=== PATIENT | male | born 1990 | race Caucasian/White ===

== ENCOUNTER 2022-02-14 16:44 | Emergency (ER) | payer OTHER, SELFPAY ==
[2022-02-14 17:04] VITALS: BP 151/98; PULSE 67; RESP 18; TEMP 36.2; O2SAT 100; BMI 28.1
[2022-02-14 17:07] VITALS: BP 150/109; PULSE 68; RESP 24; O2SAT 98
--- NOTE | 2022-02-14 17:21 | CTR_ITS ---
PROCEDURE INFORMATION: Exam: CT Abdomen And Pelvis With Contrast Exam date and time: 02/14/2022 5:47 PM Age: 32 years old Clinical indication: Abdominal pain; Patient HX: Epigastric pain today, ; additional info: Abd pain TECHNIQUE: Imaging protocol: Computed tomography of the abdomen and pelvis with contrast. Axial, coronal and sagittal reformatted images were created and reviewed. Radiation optimization: All CT scans at this facility use at least one of these dose optimization techniques: automated exposure control; mA and/or kV adjustment per patient size (includes targeted exams where dose is matched to clinical indication); or iterative reconstruction. Contrast material: OMNIPAQUE 350; Contrast volume: 95 ml; Contrast route: INTRAVENOUS (IV); COMPARISON: No relevant prior studies available. RADIATION DOSE METRICS: Total DLP (mGy-cm): 1918.49 FINDINGS: Diaphragm: Elevated left hemidiaphragm. Liver: Mild hepatomegaly. 8.6 x 7.9 cm heterogeneous mass in the left hepatic lobe. Innumerable low-density lesions throughout the hepatic parenchyma. Gallbladder and bile ducts: No radiodense gallstones. No biliary ductal dilatation. Pancreas: Unremarkable. Spleen: Mild splenomegaly. Adrenal glands: Normal. No mass. Kidneys and ureters: Subcentimeter low-density renal lesions bilaterally, measuring up to 6 mm on the right, too small to characterize. No radiodense calculi. No hydronephrosis. Stomach and bowel: No bowel wall thickening. No obstruction. No pneumatosis. Appendix: Normal. Intraperitoneal space: No free fluid. No organized fluid collection. No free air. Vasculature: Unremarkable. No aneurysm. Lymph nodes: No pathologically enlarged lymph nodes. Urinary bladder: Unremarkable as visualized. Reproductive: Unremarkable. Bones/joints: No acute osseous abnormality. Soft tissues: Unremarkable. CT/CT abdomen pelvis w con* [id number] IMPRESSION: 1. 8.6 x 7.9 cm heterogeneous mass in the left hepatic lobe with innumerable low-density lesions throughout the hepatic parenchyma. Findings are worrisome for malignancy/metastatic disease. 2. Additional findings, as above. COMMENTS: Consistent with the [employer]'s Incidental Findings Committee white paper (J Am Elissa Radiol 2018): Any incidental renal lesion less than 1 cm or classified as too small to characterize, or any incidental cystic renal lesion characterized as simple-appearing, is likely benign. No follow-up imaging is recommended for these lesions per consensus recommendations based on imaging criteria.
--- NOTE | 2022-02-14 17:22 | W.ED.ABDPA2 ---
HPI - Abdominal Pain General: Chief Complaint: Abdominal Pain Stated Complaint: abd pain Time Seen by Provider: 02/14/22 17:17 History of Present Illness: 32-year-old presents with epigastric abdominal pain. States this started suddenly around noon. Denies any nausea vomiting or constipation. Denies any previous history of similar pain. Denies any radiation to the sides or to the back. Denies any chest pain shortness of breath fevers or chills. Denies dysuria or urethral discharge. Review of Systems Narrative: - CONSTITUTIONAL: Denies weight loss, fever and chills. - HEENT: Denies changes in vision and hearing. - RESPIRATORY: Denies SOB and cough. - CV: Denies palpitations and CP. - GI: As above - : Denies dysuria and urinary frequency. - MSK: Denies myalgia and joint pain. - SKIN: Denies rash and pruritus. - NEUROLOGICAL: Denies headache, weakness, numbness and syncope. - PSYCHIATRIC: Denies suicidal ideation Physical Exam Narrative: EXAM NARRATIVE: - GENERAL: Alert and oriented x 3. No acute distress. Well-nourished. - EYES: EOMI. Anicteric. - HENT: Atraumatic, no C-spine tenderness. Moist mucous membranes. No scleral icterus. No cervical lymphadenopathy. - LUNGS: Clear to auscultation bilaterally. No accessory muscle use. Equal lung sounds bilaterally. No respiratory distress. - CARDIOVASCULAR: Regular rate and rhythm. No murmur. No JVD. - ABDOMEN: Soft, tender in epigastric region, non-distended. Negative CVA tenderness bilaterally, no rebound or guarding, negative Pham sign. No palpable masses. - EXTREMITIES: No edema. Non-tender. - SKIN: No rashes or lesions. Warm. - NEUROLOGIC: No meningismus or focal neurological deficits. CN II-XII grossly intact. - PSYCHIATRIC: Cooperative. Appropriate mood and affect. Course Vital Signs: Vital signs: Vital Signs Temperature 97.1 F L 02/14/22 17:04 Pulse Rate 75 02/14/22 18:10 Respiratory Rate 19 H 02/14/22 18:10 Blood Pressure 154/86 02/14/22 18:10 Pulse Oximetry 97 02/14/22 18:10 MDM - Abdominal Pain Medical Decision Making 32-year-old presents due to upper abdominal pain. Does have tenderness on exam. Improved with morphine. Lab work reveals mild LFT elevation. EKG and troponin do not reveal any sign of acute ischemia or acute abnormality. CT scan is concerning for liver mass. This is concerning for possible malignancy. Discussed with on-call oncologist, Dr. Palencia, at this time he recommends outpatient follow-up and will schedule patient for biopsy will call him tomorrow to arrange for outpatient follow-up. At this time I believe patient would be safe for discharge and outpatient follow-up. Return precautions provided. Plan was reviewed with the patient who expressed understanding. Questions answered. Patient will follow up with oncology and PCP. Patient discharged in stable condition. Lab Data : 02/14/22 17:40 02/14/22 17:40 Labs/Radiology: Radiology Impressions Abdomen/Pelvis CT 02/14/22 17:21 IMPRESSION: 1. 8.6 x 7.9 cm heterogeneous mass in the left hepatic lobe with innumerable low-density lesions throughout the hepatic parenchyma. Findings are worrisome for malignancy/metastatic disease. 2. Additional findings, as above. COMMENTS: Consistent with the [employer]'s Incidental Findings Committee white paper (J Am Elissa Radiol 2018): Any incidental renal lesion less than 1 cm or classified as too small to characterize, or any incidental cystic renal lesion characterized as simple-appearing, is likely benign. No follow-up imaging is recommended for these lesions per consensus recommendations based on imaging criteria. Laboratory Results WBC 6.0 10^3/uL (4.0-10.0) 02/14/22 17:40 RBC 5.11 10^6/uL (4.1-5.3) 02/14/22 17:40 Hgb 14.8 g/dL (11.7-16.6) 02/14/22 17:40 Hct 45.9 % (42.0-52.0) 02/14/22 17:40 MCV 89.8 fl (80-94) 02/14/22 17:40 MCH 29.0 pg (28.0-34.0) 02/14/22 17:40 MCHC 32.2 g/dL (30.0-36.0) 02/14/22 17:40 RDW 15.8 % (12.1-15.1) H 02/14/22 17:40 Plt Count 258 10^3/cmm (130-400) 02/14/22 17:40 MPV 9.8 fL (7.4-10.4) 02/14/22 17:40 Neut % (Auto) 76.1 % 02/14/22 17:40 Lymph % (Auto) 17.2 % 02/14/22 17:40 Butts % (Auto) 4.3 % 02/14/22 17:40 Eos % (Auto) 1.7 % 02/14/22 17:40 Baso % (Auto) 0.5 % 02/14/22 17:40 Neut # (Auto) 4.59 10^3/uL (1.8-7.7) 02/14/22 17:40 Lymph # (Auto) 1.0 10^3/uL (0.8-4.8) 02/14/22 17:40 Butts # (Auto) 0.3 10^3/uL (0.2-0.9) 02/14/22 17:40 Eos # (Auto) 0.1 10^3/uL (0.0-0.8) 02/14/22 17:40 Baso # (Auto) 0.0 10^3/uL (0.0-0.1) 02/14/22 17:40 Nucleated RBC % (auto) 0 % 02/14/22 17:40 Nucleated RBCs # 0.0 /100WBC 02/14/22 17:40 Sodium 138 mmol/L (136-145) 02/14/22 17:40 Potassium 4.3 mmol/L (3.5-5.1) 02/14/22 17:40 Chloride 98 mmol/L (98-107) 02/14/22 17:40 Carbon Dioxide 26 mmol/L (22-29) 02/14/22 17:40 Anion Gap 18.3 (5-19) 02/14/22 17:40 BUN 16 mg/dL (6-20) 02/14/22 17:40 Creatinine 0.7 mg/dL (0.7-1.2) 02/14/22 17:40 GFR Calculation 130.7 mL/min (90-130) H 02/14/22 17:40 Glucose 106 mg/dL (65-115) 02/14/22 17:40 Calculated Osmolality 288 mOsm/kg (285-295) 02/14/22 17:40 Calcium 10.0 mg/dL (8.5-10.5) 02/14/22 17:40 Total Bilirubin 0.9 mg/dL (0.15-1.2) 02/14/22 17:40 AST 94 U/L (0-40) H 02/14/22 17:40 ALT 151 U/L (0-41) H 02/14/22 17:40 Alkaline Phosphatase 42 IU/L (40-130) 02/14/22 17:40 Troponin T Baseline 12 ng/L (0-15) 02/14/22 17:40 Troponin T 120 Minute 18.12 ng/L (0-15) H 02/14/22 19:09 Delta Troponin T 6.12 ABS# (0-10) 02/14/22 19:09 Total Protein 7.3 g/dL (6.6-8.7) 02/14/22 17:40 Albumin 5.1 g/dL (3.5-5.2) 02/14/22 17:40 Globulin 2.2 g/dL (1.3-4.6) 02/14/22 17:40 Lipase 67 U/L (13-60) H 02/14/22 17:40 Urine Color Yellow (Yellow) 02/14/22 19:16 Urine Appearance Clear (CLEAR) 02/14/22 19:16 Urine pH 5 (5-7) 02/14/22 19:16 Ur Specific [place] 1.010 (1.005-1.030) 02/14/22 19:16 Urine Protein 1+ (Negative) H 02/14/22 19:16 Urine Glucose (UA) Norm (Normal) 02/14/22 19:16 Urine Ketones Negative (Negative) 02/14/22 19:16 Urine Blood 3+ (Negative) H 02/14/22 19:16 Urine Nitrate Negative (Negative) 02/14/22 19:16 Urine Bilirubin Neg (Negative) 02/14/22 19:16 Urine Urobilinogen Neg mg/dL (Negative) 02/14/22 19:16 Ur Leukocyte Esterase Trace (Negative) H 02/14/22 19:16 Urine RBC 15-25 /hpf (0-2) H 02/14/22 19:16 Urine WBC 0-4 /hpf (0-5) H 02/14/22 19:16 Ur Squamous Epith Cells 0-4 /hpf (0-5) H 02/14/22 19:16 Amorphous Sediment Not Reportable 02/14/22 19:16 Urine Bacteria Trace /hpf (NONE) 02/14/22 19:16 Urine Mucus Trace /hpf 02/14/22 19:16 EKG Data EKG 1: Other EKG comments: Sinus rhythm, rate of 67, T wave inversion in aVF, no sign of acute ischemia or other acute abnormality. Discharge Plan Discharge Patient Disposition: Home Clinical Impression: Liver mass Condition: Stable Prescriptions: New hydrocodone-acetaminophen 5-325 mg tablet 1 tab PO Q8H PRN (Reason: pain) 3 Days Qty: 9 0RF ondansetron 4 mg tablet,disintegrating 4 mg PO TID PRN (Reason: nausea and vomiting) 3 Days Qty: 10 0RF Discharge Orders: Discharge ED (Routine); Ordered 02/14/22 Ordered By: Alexis Hernandez Referrals: Garrett Palencia MD [Hospitalist] - 1-3 days Patient Instructions: Liver Cancer (DC), Abdominal Pain (ED), Opioid Safety Coding Level of Care Code ED Long Term Care Administrator for Chg Darnell
[2022-02-14 17:49] LABS: Basophils % 0.5 %; Eosinophils # 0.1 10^3/uL (0.0-0.8); Eosinophils % 1.7 %; Hematocrit 45.9 % (42.0-52.0); Hemoglobin 14.8 g/dL (11.7-16.6); Lymphocytes % 17.2 %; Mean Corpuscular HGB Conc 32.2 g/dL (30.0-36.0); Mean Corpuscular Volume 89.8 fl (80-94); Mean Platelet Volume 9.8 fL (7.4-10.4); Monocytes # 0.3 10^3/uL (0.2-0.9); Monocytes % 4.3 %; Neutrophils # 4.59 10^3/uL (1.8-7.7); Neutrophils % 76.1 %; Nucleated Red Blood Cells % 0 %; Platelet Count 258 10^3/cmm (130-400); Red Blood Count 5.11 10^6/uL (4.1-5.3); Red Cell Distribution Width 15.8 % (12.1-15.1)
[2022-02-14 17:51] VITALS: RESP 18
[2022-02-14] MEDS: ondansetron 2 mg/ML SDV 2 mL 4 MG IVP (17:51)
[2022-02-14] MEDS: morphine 4 mg/mL SDV 1 mL IVP (17:51)
[2022-02-14] MEDS: sodium chloride 0.9% 1,000 ML 999 ML IV (17:52)
[2022-02-14] MEDS: iohexol 350 mg/mL 100 mL Btl IV (18:00)
[2022-02-14 18:10] VITALS: BP 154/86; PULSE 75; RESP 19; O2SAT 97
[2022-02-14 18:13] LABS: Alanine Aminotransferase 151 U/L (0-41); Albumin Level 5.1 g/dL (3.5-5.2); Alkaline Phosphatase 42 IU/L (40-130); Blood Urea Nitrogen 16 mg/dL (6-20); Carbon Dioxide 26 mmol/L (22-29); Chloride 98 mmol/L (98-107); Globulin 2.2 g/dL (1.3-4.6); Glomerular Filtration Rate 130.7 mL/min (90-130); Glucose 106 mg/dL (65-115); Lipase 67 U/L (13-60); Osmolality Calculated 288 mOsm/kg (285-295); Sodium 138 mmol/L (136-145); Total Bilirubin 0.9 mg/dL (0.15-1.2); Total Protein 7.3 g/dL (6.6-8.7)
[2022-02-14 18:15] LABS: Troponin(5th) Baseline 12 ng/L (0-15)
[2022-02-14 18:33] LABS: Anion Gap 18.3 (5-19); Aspartate Amino Transferase 94 U/L (0-40); Potassium 4.3 mmol/L (3.5-5.1)
[2022-02-14 19:30] LABS: Bilirubin Urine Neg (Negative); Blood Urine 3+ (Negative); Glucose Urine UA Norm (Normal); Ketones Urine Negative (Negative); Leukocyte Esterase Urine Trace (Negative); Nitrate Urine Negative (Negative); Protein Urine 1+ (Negative); Urine Appearance Clear (CLEAR); Urine Color Yellow (Yellow); Urobilinogen Urine Neg (Negative); pH Urine 5 (5-7)
[2022-02-14 19:31] LABS: RBC Urine 15-25 /hpf (0-2); Squamous Epithelial Cell Urine 0-4 /hpf (0-5); WBC Urine 0-4 /hpf (0-5)
[2022-02-14 19:32] LABS: Add Urine Culture? Yes; Bacteria Urine TRACE /hpf; Mucus Urine TRACE /hpf
[2022-02-14 19:38] LABS: Troponin 5 2HR 18.12 ng/L (0-15)
[2022-02-14 19:39] LABS: Troponin 5 2HR Delta 6.12 ABS# (0-10)
[2022-02-14 19:54] VITALS: BP 169/99; PULSE 70; RESP 16; O2SAT 99
[2022-02-14] MEDS: HYDROcodone-acetaminophen 10-325 mg Tablet 1 TAB PO (19:57)
--- NOTE | 2022-02-14 19:58 | PC.NURSE ---
gave patient [place] 325/5 to take home for pain until able to fill prescription tomorrow
[2022-02-14 20:21] LABS: Tumor Marker Alpha Fetoprotein 3.1 ng/mL (0-8.3)
--- NOTE | 2022-02-14 23:22 | ECG_ITS ---
[facility] Test Date: 2022-02-14 Pat Name: Slade Noland Department: Room: Gender: Male Imaging Manager: : 1990 Requested By: Alexis Hernandez Order Number: [id number] Louis MD: Tray Hutton M.D. Measurements Intervals [place] Rate: 67 P: 36 DE: 142 QRS: 90 QRSD: 99 T: -18 QT: 357 QTc: 379 Interpretive Statements SINUS RHYTHM NONSPECIFIC T-WAVE ABNORMALITY No previous ECG available for comparison Electronically Signed On 02-14-2022 21:02:42 CDT by Tray Hutton M.D. [email or web address]
--- NOTE | 2022-02-15 08:16 | DCPLANNER ---
Addendum entered by Gina Quinones 02/18/22 09:31: farrowing manager was told that patient was transferred out the [facility], the clinic will keep referral and will schedule an appointment when patient returns home. Original Note: farrowing manager had message to schedule a follow up appointment with Dr. Palencia, oncology. farrowing manager spoke with Jo Wang, manufacturing coordinator with oncology. Gave clinic patients information, which will be printed and reviewed. Clinic will contact patient with appointment information.
== END 2022-02-14 19:59 | disposition home or self-care (01) ==
PROVIDERS: Emergency Provider Emergency Medicine
DX: R16.0 Hepatomegaly, not elsewhere classified (principal)
CPT/HCPCS: 36415; 74177; 80053; 81001; 82105; 83690; 84484; 85025; 87086; 93005; 96374; 96375; 99285; J2270; J2405; J7030; Q9967

== ENCOUNTER 2022-02-14 22:52 | Observation (INO) | payer OTHER, SELFPAY ==
[2022-02-14 23:22] VITALS: BP 151/90; PULSE 66; RESP 20; TEMP 36.8; O2SAT 98; BMI 28.1
--- NOTE | 2022-02-14 23:48 | W.ED.ABDPA2 ---
HPI - Abdominal Pain General: Chief Complaint: Abdominal Pain Stated Complaint: abd pain Time Seen by Provider: 02/14/22 23:04 Source: patient Mode of arrival: ambulatory Limitations: no limitations History of Present Illness: Patient is a 32-year-old male who presents to the ED today with complaint of upper abdominal pain. Patient was seen here earlier today and had labs and CT imaging performed. CT imaging showed multiple liver lesions concerning for possible malignancy. Patient was given IV pain medications on his last visit which did help but he states these medications were off. He was given a hydrocodone to go home with but states when he took it at home he got nauseous and vomited it up. Previous ED provider had consulted with Dr. Palencia our oncologist who agreed to see patient this week for further evaluation. Patient denies NSAID use/etoh use. No history of GI ulcer/bleed. MD elicited complaint: abdominal pain Pertinent past history: none Onset (ago): hour(s) Pain Consistency: constant Location: Epigastric, LUQ and RUQ Severity: severe Quality: sharp Radiation: none Migration to: no migration Associated Symptoms: Denies chills, constipation, diarrhea, dysuria, fever(s), hematochezia, hematuria and melena Review of Systems Const: Denies: fever(s), chills, body aches, fatigue or malaise Card: Denies: chest pain Resp: Denies: dyspnea GI: Reports: abdominal pain; Denies: diarrhea, constipation, hematochezia or melena : Denies: flank pain, dysuria or hematuria Musc: Denies: neck pain, back pain, extremity pain or joint pain Skin/Breast: Denies: rash Neuro: Denies: headache(s), numbness in extremities, weakness in extremities or sensory changes [facility] ED PFSH: Medical History Cellulitis Surgical History No significant past surgical history Family History Other No significant family history Social History Smoking and tobacco status: never smoked Alcohol intake: current Alcohol intake frequency: holidays/special occasions only Substance/Drug Use: never Lives independently: Yes Marital status: Physical Exam Const: COMMON NORMALS: patient oriented x3, no limitations and alert GENERAL APPEARANCE: cooperative and in distress (appears uncomfortable) Eye: SCLERA: sclerae normal Resp: COMMON NORMALS: normal respiratory effort and clear to auscultation bilaterally AUSCULTATION: clear to auscultation bilaterally Cardio: COMMON NORMALS: regular rate and regular rhythm RATE: regular rate RHYTHM: regular rhythm GI: COMMON NORMALS: Normal to inspection, nondistended, normoactive bowel sounds present, Soft to palpation, No hepatosplenomegaly present and no masses INSPECTION: Yes normal to inspection AUSCULTATION: Yes normoactive bowel sounds PALPATION: Yes Soft to palpation, Yes Tenderness to palpation present (GI) (throughout upper abdomen) and Yes No hepatosplenomegaly present : COMMON NORMALS: Yes no CVA tenderness BLADDER/KIDNEY EXAM: Yes no CVA tenderness Back/Pelvis: COMMON NORMALS: no CVA tenderness Extremity: GENERAL: Yes normal exam except as noted Neuro: UZMA COMA SCALE: document GCS findings [place] coma scale eye opening: Spontaneous Uzma coma scale verbal response: Orientated [place] coma scale motor response: Obey commands Uzma coma scale total score: 15 COMMON NORMALS: patient oriented x3, moves all extremities, no focal motor deficits and no sensory deficits noted SENSORIUM/ORIENTATION: Yes alert Skin: COMMON NORMALS: no rashes or lesions noted and no jaundice GENERAL SKIN EXAM: no rashes or lesions noted TRAUMA: no lacerations or abrasions Course Reevaluation(s): Reevaluation #1: states pain/nausea is still present; reports he tried to take a drink of water and felt like he was going to vomit Time: 00:32 Consultations: Consultation #1: Dr. Rivas?will admit to obs for pain control Vital Signs: Vital signs: Vital Signs Temperature 98.6 F 02/15/22 07:58 Pulse Rate 97 02/15/22 07:58 Respiratory Rate 18 02/15/22 08:28 Blood Pressure 149/75 02/15/22 07:58 Pulse Oximetry 95 02/15/22 07:58 MDM - Abdominal Pain Medical Decision Making Patient here with complaints of upper abdominal pains beginning yesterday/today. Patient had lab work and CT imaging performed on earlier visit. CT scan worrisome for liver malignancy/metastasis. Patient states when he was discharged earlier pain was controlled but as soon as the morphine wore off his pain returned. He tried taking a hydrocodone that he was discharged with but vomited it back up. He presented back to the ED with complaints of pain. He was initially treated with Morphine and Zofran which did not seem to do much for his pain or nausea. He was then given Dilaudid and Reglan and states this has helped but is still having discomfort and does not feel like his pain/nausea can be controlled at home. I spoke to Dr. Merino and Dr. Rivas and we will admit patient to obs for pain control. We did discuss gastric etiology of his symptoms and will go ahead and start him on a PPI. Lab Data : 02/15/22 07:03 02/15/22 07:03 Discharge Plan Discharge Patient Disposition: Placed in Observation Admit Provider: Jeremy Rivas Clinical Impression: Liver mass, Uncontrolled pain Coding Level of Care Code ED Double Cut Off Saw Operator for Chg Fwd Exam Comprehensive
[2022-02-15] VITALS (17 sets, daily range): BP systolic 127–173; BP diastolic 71–106; PULSE 68–134; RESP 12–22; TEMP 36.7–38.1; O2SAT 91–98
[2022-02-15] MEDS: morphine 4 mg/mL SDV 1 mL IVP (00:13)
[2022-02-15] MEDS: ondansetron 2 mg/ML SDV 2 mL 4 MG IVP ×4 (00:14→19:19)
[2022-02-15] MEDS: metoclopramide 5 mg/mL SDV 2 mL 10 MG IVP (00:40)
[2022-02-15] MEDS: HYDROmorphone 1 mg/mL INJ 1 mL 0.5 MG IVP ×2 (00:43→02:33)
[2022-02-15] MEDS: pantoprazole 40 mg SDV IVP (01:34)
--- NOTE | 2022-02-15 01:38 | PM.HP ---
Providers/Chief Complaint Chief Complaint: abd pain History of Present Illness Pleasant 32-year-old gentleman is accompanied by his in ER after he returned here having initially presented earlier last night due to right upper quadrant radiating to epigastric pain, which on imaging identified 8.6 x 7.9 cm heterogenous mass in the left hepatic lobe with innumerable low-density lesions throughout the hepatic parenchyma on contrast CT abdomen and pelvis. Findings worrisome for malignancy/metastatic disease. In the kidneys and ureters also noted subcentimeter low-density renal lesions bilaterally, measuring up to 6 mm on the right too small to characterize. No radiodense calculi. No hydronephrosis. He was given IV pain medications on the initial visit which helped with his pain. He discharged home with plans for a work-up of the above findings with follow-up with Dr. Palencia, however, return to ER stating that after returning home pain medications had worn off. He was given hydrocodone to go home, but after taking it at home became nauseated, vomited. Could not tolerate oral medications for pain or nausea due to this return to ER. Observation was requested as he is feeling a little bit better currently, but still nauseated and concerned that returning home too soon will lead to repeat of earlier events. He took no NSAIDs. He rarely drinks any alcohol. He has had no headache or focal neurologic abnormalities. He has felt somewhat warm and having some sweats. Detailed work-up from earlier visit showed no fever, no leukocytosis. Lipase with minimal elevation of 67. Mild transaminitis with normal T bili and alk phos. Microscopic hematuria. Review of Systems Const: Denies: fever(s), chills, body aches or malaise Eyes: Denies: change in vision, eye discomfort or eye redness ENMT: Denies: throat pain, oral sores or ear or mastoid pain Card: Denies: chest pain, edema, pre-syncope or dyspnea on exertion Resp: Denies: dyspnea, productive cough, change in phlegm color or hemoptysis GI: Reports: abdominal pain, nausea and vomiting (After pain medication); Denies: diarrhea, constipation, hematochezia or melena : Denies: flank pain, difficulty urinating, urinary frequency or hematuria Musc: Denies: back pain, joint swelling or joint redness Skin/Breast: Denies: rash or new lesions Neuro: Denies: headache(s), numbness in extremities, weakness in extremities, dizziness, confusion or seizure-like activity Endo: Denies: polyuria or polydipsia Alfonzo/Lymph: Denies: easy bleeding or tender lymph nodes All/Imm: Denies: urticaria or tongue swelling Medications/Allergies Home Medications Medication Instructions Recorded Confirmed Last Taken Type hydrocodone 5 mg-acetaminophen 325 1 tab PO Q8H PRN 3 Days #9 tab 02/14/22 Unknown Rx mg tablet ondansetron 4 mg disintegrating 4 mg PO TID PRN 3 Days #10 tab 02/14/22 Unknown Rx tablet Allergies Allergy/AdvReac Type Severity Reaction Status Date / Time vancomycin Allergy ALGY-Redness Verified 02/15/22 01:56 of Skin PFSH Acute PFSH: Medical History Cellulitis Surgical History No significant past surgical history Family History Other No significant family history Social History Smoking and tobacco status: never smoked Alcohol intake: current Alcohol intake frequency: holidays/special occasions only Substance/Drug Use: never Lives independently: Yes Marital status: Vitals/I&O/Wt Last Vital Signs Temp 98.2 F 02/14/22 23:22 Pulse 80 02/15/22 01:25 Resp 18 02/15/22 00:44 BP 127/71 02/15/22 01:25 Pulse Ox 94 02/15/22 01:25 Weight last 48 hrs Weight 83.915 kg Physical Exam Narrative: Accompanied by at bedside. Const: COMMON NORMALS: alert GENERAL APPEARANCE: cooperative ORIENTATION/CONSCIOUSNESS: Yes awake OTHER: Holding onto her right upper quadrant. HENMT: COMMON NORMALS: normocephalic, EAC's normal, Normal external nose present and moist oral mucous membranes HEAD & SCALP: normocephalic NOSE: Normal external nose present EXTERNAL AUDITORY CANAL: EAC's normal Neck/C-Spine: COMMON NORMALS: no meningeal signs Chest: CHEST: Yes Symmetrical chest wall rise Resp: COMMON NORMALS: clear to auscultation bilaterally AUSCULTATION: clear to auscultation bilaterally Cardio: COMMON NORMALS: regular rate, regular rhythm and No murmurs present (Cardio) RATE: regular rate RHYTHM: regular rhythm GI: COMMON NORMALS: Normal to inspection, nondistended, normoactive bowel sounds present, Soft to palpation and non-tender PALPATION: Yes Soft to palpation and Yes Tenderness to palpation present (GI) Details: RUQ Extremity: COMMON NORMALS: no pedal edema Neuro: COMMON NORMALS: moves all extremities SENSORIUM/ORIENTATION: Yes alert MENINGEAL SIGNS: Yes no meningeal signs Psych: COMMON NORMALS: mental status grossly normal Skin: COMMON NORMALS: no wounds RASHES: no rashes A&P Assessment and plan (1) Nausea and vomiting: Nausea and vomiting after taking hydrocodone at home. Subsequently nauseated to the point could not tolerate further pain or nausea medications by mouth. Return to ER after initial visit. On return received additionally Zofran, Reglan for nausea, Dilaudid for pain. A dose of Protonix. Currently is feeling little bit better, but still nauseated, and still with right upper quadrant pain, concerned that returning home too soon will lead to repeat of earlier events. Continue to optimize nausea control, continue Zofran as needed. Reglan can be added again if needed. Discontinue hydrocodone, consider hydromorphone p.o. for now if tolerating. Continue PPI for now. Will also follow-up lipase with noted minimal elevation on prior admission. Status: Acute (2) Uncontrolled pain: Right upper quadrant radiating to epigastrium. Pain control as above. As above. Status: Acute (3) Liver mass: New diagnosis of heterogenous liver mass with innumerable small lesions throughout liver parenchyma. On initial ER visit was set up with follow-up with additional work-up with Dr. Palencia which he and his are aware of the need to pursue. Status: Acute (4) Lesion of both [employer] kidneys: Brought up with him also noted too small to characterize kidney lesions of unclear significance. With microscopic hematuria noted, concern may arise for metastatic disease. Status: Acute (5) Microscopic hematuria: Will need follow-up regarding microscopic hematuria. Possibly related to kidney lesions as above. Status: Acute Plan Mild transaminitis: Likely related to liver mass and lesions, although will also assess acute hepatitis panel. Attestations Medical Necessity Statement*: Place in observation for optimization of control of severe nausea, inability to tolerate oral medication and optimization of control of pain. Coding Level of Care Code Acute Forming Acid Dumper for Alyssa Patrick Diagnoses Nausea and vomiting R11.2 Uncontrolled pain R52 Liver mass R16.0 Microscopic hematuria R31.29 Lesion of both [employer] kidneys N28.9
[2022-02-15] MEDS: HYDROmorphone 1 mg/mL INJ 1 mL IVP ×3 (04:28→19:30)
[2022-02-15] MEDS: metoclopramide 5 mg/mL SDV 2 mL IVP ×2 (04:29→12:45)
[2022-02-15 07:17] LABS: Basophils # 0.1 10^3/uL (0.0-0.1); Basophils % 0.4 %; Eosinophils % 0.2 %; Hematocrit 45.4 % (42.0-52.0); Hemoglobin 14.7 g/dL (11.7-16.6); Lymphocytes # 0.5 10^3/uL (0.8-4.8); Lymphocytes % 4.2 %; Mean Corpuscular HGB Conc 32.4 g/dL (30.0-36.0); Mean Corpuscular Hemoglobin 28.5 pg (28.0-34.0); Mean Corpuscular Volume 88.2 fl (80-94); Mean Platelet Volume 8.7 fL (7.4-10.4); Monocytes # 0.4 10^3/uL (0.2-0.9); Monocytes % 3.9 %; Neutrophils # 10.21 10^3/uL (1.8-7.7); Neutrophils % 91.1 %; Nucleated Red Blood Cells % 0 %; Platelet Count 282 10^3/cmm (130-400); Red Blood Count 5.15 10^6/uL (4.1-5.3); Red Cell Distribution Width 15.3 % (12.1-15.1); White Blood Count 11.2 10^3/uL (4.0-10.0)
[2022-02-15 07:40] LABS: Lipase 48 U/L (13-60)
[2022-02-15 07:53] LABS: Hepatitis A Antibody IgM Non-Reactive (Nonreactive); Hepatitis B Core IgM Non-Reactive (Nonreactive); Hepatitis B Surface Antigen Non-Reactive (Nonreactive); Hepatitis C Virus Antibody Non-Reactive (Nonreactive)
[2022-02-15 07:59] LABS: Albumin Level 4.9 g/dL (3.5-5.2); Alkaline Phosphatase 50 IU/L (40-130); Anion Gap 17.6 (5-19); Aspartate Amino Transferase 590 U/L (0-40); Blood Urea Nitrogen 15 mg/dL (6-20); Calcium 9.9 mg/dL (8.5-10.5); Carbon Dioxide 27 mmol/L (22-29); Chloride 97 mmol/L (98-107); Globulin 2.5 g/dL (1.3-4.6); Glucose 115 mg/dL (65-115); Osmolality Calculated 286 mOsm/kg (285-295); Potassium 4.6 mmol/L (3.5-5.1); Sodium 137 mmol/L (136-145); Total Bilirubin 1.2 mg/dL (0.15-1.2); Total Protein 7.4 g/dL (6.6-8.7)
[2022-02-15 08:10] LABS: Alanine Aminotransferase 1186 U/L (0-41)
--- NOTE | 2022-02-15 09:50 | PC.CHAP ---
Pastoral Care Encounter/Spiritual Assessment Type of Contact [] Declined draw frame tender visit [] Patient/Family/Request visit [] Outpatient visit [] Follow-up visit [] Physician referral [] Code/Alert []x Routine visit [] Staff referral [] Actively dying [] Patient sleeping [] Family support [] [] Out of room [] Palliative care [] [x] Receiving care in room [] Pre-surgical visit [] Trauma [] Long length of stay [] ICU visit [] Other: Relational/Emotional Strength [] Patient feels connected with others/family/visitors/staff [] Distress [] Loneliness/isolation [] Abandonment Spirituality of Patient [] Person of Milagro [] Attends Nondenominational of their Milagro [] Believes in Prayer [] Reads Bible or Voodoo materials [] There are Spiritual issues to be addressed Shear Helper Interventions [] Prayer [] Active listening [] Non-anxious presence [] Spiritual/emotional support [] Crisis/trauma care [] Spiritual counseling [] Bereavement support [] Provided bereavement packet [] Provided Bible/devotional materials [] Provided toy/stuffed animal, coloring book to patient or family member [] Provided Communion [] Anointing/Shonto [] Salvation [] Completed spiritual assessment [] Other: Impact on Illness or Injury [] Angry [] Fearful [] Anxious [] Often cries [] Exhaustion [] Unable to work [] Unable to attend adventist [] Unable to walk/stand [] Unable to read [] Unable to drive [] Unable to eat/drink [] Unable to sleep [] Unable to be with family [] Patient intubated [] Other: Summary Time spent with patient
[2022-02-15] MEDS: promethazine 25 mg/mL SDV 1 mL 12.5 MG IM (09:56)
[2022-02-15] MEDS: morphine 4 mg/mL SDV 1 mL 2 MG IVP (10:00)
[2022-02-15] MEDS: sodium chloride 0.9% 1,000 ML 75 ML IV (10:01)
--- NOTE | 2022-02-15 11:14 | PC.NURSE ---
Pt vomiting, vomit is yellow. Pt is having dry heaves with nausea.
--- NOTE | 2022-02-15 12:11 | PM.TDS ---
Transfer Summary Providers Date of Admission: 02/15/22 01:14 Date of Discharge/Transfer: 02/15/22 Attending Provider at Admission: Jeremy Rivas Attending Provider at Transfer: Evi Moran MD Transfer Plans: Anticipated date of transfer: 02/15/22. Diagnoses at Discharge Discharge Diagnosis (1) Nausea and vomiting: Status: Acute (2) Uncontrolled pain: Status: Acute (3) Liver mass: Status: Acute (4) Lesion of both [place] kidneys: Status: Acute (5) Microscopic hematuria: Status: Acute Reason for Visit Reason for Visit abd pain Hospital Course Hospital Course 32-year-old young male who was admitted to the hospital for management evaluation of recurrent nausea vomiting right upper quadrant pain. No previous history of medical or surgical conditions. He does not take anything except testosterone. Patient is stating that he has been prescribed testosterone by a physician at [place]. He gets testosterone prescription and never bought online. He has been using it for last 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 Hemoglobin has remained stable 14.7 blood pressure is stable he is on room air. We do not have interventional radiologist for embolization for his active bleed. His H&H is every 4-6 hours. Next H&H is pending. For interventional radiology/embolization of hepatic vessels he will be transferred for higher level of care. He also have multiple cysts on his liver, Hepatitis panel negative CBC 11.2 hemoglobin 14 platelet count 282, creatinine 0.8 AST 590, ALT 1186, he has been afebrile, alpha-fetoprotein 3.1 lipase 48 Patient was presented to 20 different hospitals, Dr. Pimentel at [facility] has accepted him today he is an interventional radiologist. Patient is going to trauma ICU for the intervention tonight. He will be transferred via air evac. I was able to show the images via [employer] to Dr. Calvillo. COMPARISON: CT abdomen pelvis w con* [id number] 02/14/2022 5:47 PM RADIATION DOSE METRICS: Total DLP (mGy-cm): 3381.81 FINDINGS: Lungs: Mild elevation of the right hemidiaphragm. Compressive atelectasis in the right middle and right lower lobes. Pleural space: No pleural effusion. Heart: Stable mild enlargement of the visualized portions of the heart. Aorta: No evidence for aortic aneurysm or aortic dissection. Celiac trunk and mesenteric arteries: There is redemonstration of extravasation of contrast within the lesion on the arterial, portal venous, and delayed images consistent with active bleeding (series 7, images 74, 314, and 559). This suggests active bleeding from a branch of the right hepatic artery, it is uncertain whether there is also active bleeding from other vessels. The celiac artery, common hepatic artery and left hepatic artery, splenic artery, superior mesenteric artery, and inferior mesenteric artery are unremarkable. No occlusion, thrombosis, stenosis, dissection, or aneurysm. 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 Renal arteries are otherwise unremarkable. No occlusion, thrombosis, stenosis, extravasation, dissection, or aneurysm. Right iliac arteries: The right common iliac artery, right external iliac artery, and right internal iliac artery are unremarkable. No occlusion, thrombosis, stenosis, extravasation, dissection, or aneurysm. Left iliac arteries: The left common iliac artery, left external iliac artery, and left internal iliac artery are unremarkable. No occlusion, thrombosis, stenosis, extravasation, dissection, or aneurysm. Liver: There is heterogenous enhancement diffusely throughout the liver, this is likely due to multiple small lesions noted on the prior study, the small lesions are not as well visualized on the current study which may be secondary to enhancement. The large focus in the the right lobe of the liver is obscured by an area of hemorrhage. See under celiac trunk and mesenteric arteries for findings regarding contrast extravasation in this focus. Gallbladder and bile ducts: The gallbladder is unremarkable. No biliary ductal dilatation. Pancreas: The pancreas is unremarkable. No pancreatic ductal dilatation. Spleen: The spleen is unremarkable. Adrenal glands: The right and left adrenal glands are unremarkable. Kidneys and ureters: Subcentimeter hypodense foci in both right and left kidneys that are too small to characterize, however likely represent small cysts. The right and left ureters are unremarkable. Stomach and bowel: Unremarkable. No active gastrointestinal bleeding. No obstruction. No mucosal thickening. Appendix: No evidence of appendicitis. Intraperitoneal space: No free intraperitoneal air. No loculated fluid collections to suggest an abscess. Interval development of a moderate amount of hyperdense free fluid consistent with hemorrhage in the abdomen and pelvis. Lymph nodes: No lymphadenopathy. Urinary bladder: The bladder is unremarkable. Reproductive: Unremarkable as visualized. Bones/joints: No acute fracture. No dislocation. Soft tissues: No acute abnormality in the extra-abdominal soft tissues. CT/CT angio abdomen pelvis [id number] IMPRESSION: 1. Redemonstration of extravasation of contrast compared with the previous study within the inferior right lobe of the liver on the arterial, portal venous, and delayed images. This suggests active bleeding from a branch of the right hepatic artery, it is uncertain whether there is also active bleeding from other vessels. The area of hemorrhage has increased in size and is obscuring the large focus in the right hepatic lobe. Interval development of a moderate amount of hyperdense free fluid consistent with hemorrhage in the abdomen and pelvis. 2. There is heterogenous enhancement diffusely throughout the liver, this is likely due to multiple small foci noted on the prior study, the small foci are not as well visualized on the current study which may be due to enhancement. 3. 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 Liver: Mild hepatomegaly. 8.6 x 7.9 cm heterogeneous mass in the left hepatic lobe. Innumerable low-density lesions throughout the hepatic parenchyma. Gallbladder and bile ducts: No radiodense gallstones. No biliary ductal dilatation. Pancreas: Unremarkable. Spleen: Mild splenomegaly. Adrenal glands: Normal. No mass. Kidneys and ureters: Subcentimeter low-density renal lesions bilaterally, measuring up to 6 mm on the right, too small to characterize. No radiodense calculi. No hydronephrosis. Stomach and bowel: No bowel wall thickening. No obstruction. No pneumatosis. Appendix: Normal. Intraperitoneal space: No free fluid. No organized fluid collection. No free air. Vasculature: Unremarkable. No aneurysm. Lymph nodes: No pathologically enlarged lymph nodes. Urinary bladder: Unremarkable as visualized. Reproductive: Unremarkable. Bones/joints: No acute osseous abnormality. Soft tissues: Unremarkable. CT/CT abdomen pelvis w con* [id number] IMPRESSION: 1. 8.6 x 7.9 cm heterogeneous mass in the left hepatic lobe with innumerable low-density lesions throughout the hepatic parenchyma. Findings are worrisome for malignancy/metastatic disease. 2. Additional findings, as above. Physical Exam Narrative: Young male, currently cocooned in bed secondary to right upper quadrant pain Tender hepatomegaly Abdomen soft S1, S2 Nonfocal neuro exam Family at the bedside Saturating well on room air TS Data Studies Completed and Pending Pending at discharge Category Date Time Status Hemoglobin and Hematocrit Stat Lab 02/15/22 11:10 Ordered Labs from last 24 hours 02/15/22 02/15/22 02/15/22 07:03 07:03 07:03 WBC 11.2 H RBC 5.15 Hgb 14.7 Hct 45.4 MCV 88.2 MCH 28.5 MCHC 32.4 RDW 15.3 H Plt Count 282 MPV 8.7 Neut % (Auto) 91.1 Lymph % (Auto) 4.2 [place] % (Auto) 3.9 Eos % (Auto) 0.2 Baso % (Auto) 0.4 Neut # (Auto) 10.21 H Lymph # (Auto) 0.5 L [place] # (Auto) 0.4 Eos # (Auto) 0.0 Baso # (Auto) 0.1 Nucleated RBC % (auto) 0 Nucleated RBCs # 0.0 Sodium 137 Potassium 4.6 Chloride 97 L Carbon Dioxide 27 Anion Gap 17.6 BUN 15 Creatinine 0.8 GFR Calculation 112.0 Glucose 115 Calculated Osmolality 286 Calcium 9.9 Total Bilirubin 1.2 AST 590 H ALT 1186 H Alkaline Phosphatase 50 Total Protein 7.4 Albumin 4.9 Globulin 2.5 Lipase 48 Hepatitis A IgM Ab Hep Bs Antigen Hep B Core IgM Ab Hepatitis C Antibody 02/15/22 07:03 WBC RBC Hgb Hct MCV MCH MCHC RDW Plt Count MPV Neut % (Auto) Lymph % (Auto) [place] % (Auto) Eos % (Auto) Baso % (Auto) Neut # (Auto) Lymph # (Auto) [place] # (Auto) Eos # (Auto) Baso # (Auto) Nucleated RBC % (auto) Nucleated RBCs # Sodium Potassium Chloride Carbon Dioxide Anion Gap BUN Creatinine GFR Calculation Glucose Calculated Osmolality Calcium Total Bilirubin AST ALT Alkaline Phosphatase Total Protein Albumin Globulin Lipase Hepatitis A IgM Ab Non-reactive Hep Bs Antigen Non-reactive Hep B Core IgM Ab Non-reactive Hepatitis C Antibody Non-reactive Laboratory Last Values WBC 11.2 10^3/uL (4.0-10.0) H 02/15/22 07:03 RBC 5.15 10^6/uL (4.1-5.3) 02/15/22 07:03 Hgb 14.7 g/dL (11.7-16.6) 02/15/22 07:03 Hct 45.4 % (42.0-52.0) 02/15/22 07:03 MCV 88.2 fl (80-94) 02/15/22 07:03 MCH 28.5 pg (28.0-34.0) 02/15/22 07:03 MCHC 32.4 g/dL (30.0-36.0) 02/15/22 07:03 RDW 15.3 % (12.1-15.1) H 02/15/22 07:03 Plt Count 282 10^3/cmm (130-400) 02/15/22 07:03 MPV 8.7 fL (7.4-10.4) 02/15/22 07:03 Neut % (Auto) 91.1 % 02/15/22 07:03 Lymph % (Auto) 4.2 % 02/15/22 07:03 [place] % (Auto) 3.9 % 02/15/22 07:03 Eos % (Auto) 0.2 % 02/15/22 07:03 Baso % (Auto) 0.4 % 02/15/22 07:03 Neut # (Auto) 10.21 10^3/uL (1.8-7.7) H 02/15/22 07:03 Lymph # (Auto) 0.5 10^3/uL (0.8-4.8) L 02/15/22 07:03 [place] # (Auto) 0.4 10^3/uL (0.2-0.9) 02/15/22 07:03 Eos # (Auto) 0.0 10^3/uL (0.0-0.8) 02/15/22 07:03 Baso # (Auto) 0.1 10^3/uL (0.0-0.1) 02/15/22 07:03 Nucleated RBC % (auto) 0 % 02/15/22 07:03 Nucleated RBCs # 0.0 /100WBC 02/15/22 07:03 Sodium 137 mmol/L (136-145) 02/15/22 07:03 Potassium 4.6 mmol/L (3.5-5.1) 02/15/22 07:03 Chloride 97 mmol/L (98-107) L 02/15/22 07:03 Carbon Dioxide 27 mmol/L (22-29) 02/15/22 07:03 Anion Gap 17.6 (5-19) 02/15/22 07:03 BUN 15 mg/dL (6-20) 02/15/22 07:03 Creatinine 0.8 mg/dL (0.7-1.2) 02/15/22 07:03 GFR Calculation 112.0 mL/min (90-130) 02/15/22 07:03 Glucose 115 mg/dL (65-115) 02/15/22 07:03 Calculated Osmolality 286 mOsm/kg (285-295) 02/15/22 07:03 Calcium 9.9 mg/dL (8.5-10.5) 02/15/22 07:03 Total Bilirubin 1.2 mg/dL (0.15-1.2) 02/15/22 07:03 AST 590 U/L (0-40) H 02/15/22 07:03 ALT 1186 U/L (0-41) H 02/15/22 07:03 Alkaline Phosphatase 50 IU/L (40-130) 02/15/22 07:03 Total Protein 7.4 g/dL (6.6-8.7) 02/15/22 07:03 Albumin 4.9 g/dL (3.5-5.2) 02/15/22 07:03 Globulin 2.5 g/dL (1.3-4.6) 02/15/22 07:03 Lipase 48 U/L (13-60) 02/15/22 07:03 Hepatitis A IgM Ab Non-reactive (Nonreactive) 02/15/22 07:03 Hep Bs Antigen Non-reactive (Nonreactive) 02/15/22 07:03 Hep B Core IgM Ab Non-reactive (Nonreactive) 02/15/22 07:03 Hepatitis C Antibody Non-reactive (Nonreactive) 02/15/22 07:03 Recent Clincial Data Last Vital Signs Temp 98.6 F 02/15/22 07:58 Pulse 97 02/15/22 07:58 Resp 16 02/15/22 10:00 BP 149/75 02/15/22 07:58 Pulse Ox 98 02/15/22 10:00 Vital Signs Temp Pulse Resp BP Pulse Ox 02/15/22 10:00 16 98 02/15/22 08:28 18 02/15/22 07:58 98.6 F 97 15 149/75 95 02/15/22 04:28 16 02/15/22 04:00 98.1 F 68 18 173/96 97 02/15/22 02:33 18 02/15/22 01:51 70 14 140/82 93 02/15/22 01:25 80 127/71 94 02/15/22 00:44 75 18 163/106 98 02/15/22 00:43 18 02/15/22 00:13 18 Intake & Output/Weight 02/13/22 02/14/22 02/15/22 02/16/22 06:59 06:59 06:59 06:59 Output Total 250 / 250 Balance -250 / -250 Weight 83.143 kg Vitals Last Vital Signs Temp 98.6 F 02/15/22 07:58 Pulse 97 02/15/22 07:58 Resp 16 02/15/22 10:00 BP 149/75 02/15/22 07:58 Pulse Ox 98 02/15/22 10:00 TS Medications Medications Hydromorphone HCl (Hydromorphone 1 Mg/Ml Inj 1 Ml) 1 mg IVP Q4H PRN PRN Reason: PAIN Last Admin: 02/15/22 08:28 Dose: 1 mg Documented by: Sodium Chloride (Sodium Chloride 0.9%) 1,000 mls @ 75 mls/hr IV .[id number] [facility] Last Admin: 02/15/22 10:01 Dose: 75 mls/hr Documented by: Metoclopramide HCl (Metoclopramide 5 Mg/Ml Sdv 2 Ml) 5 mg IVP Q6H PRN PRN Reason: NAUSEA AND VOMITING Last Admin: 02/15/22 04:29 Dose: 5 mg Documented by: Morphine Sulfate (Morphine 4 Mg/Ml Sdv 1 Ml) 4 mg IVP Q2H PRN PRN Reason: BREAKTHROUGH PAIN Ondansetron HCl (Ondansetron 2 Mg/Ml Sdv 2 Ml) 4 mg IVP Q8H PRN PRN Reason: vomiting, or N/V if npo Last Admin: 02/15/22 11:18 Dose: 4 mg Documented by: Pantoprazole Sodium (Pantoprazole Dr 40 Mg Tablet) 40 mg PO DAILY [facility] Last Admin: 02/15/22 08:28 Dose: Not Given Documented by: Promethazine HCl (Promethazine 25 Mg/Ml Sdv 1 Ml) 12.5 mg IM Q6H PRN PRN Reason: NAUSEA Last Admin: 02/15/22 09:56 Dose: 12.5 mg Documented by: Senna/Docusate Sodium (Sennosides-Docusate Tablet) 1 tab PO BID JARRETT Discontinued Medications Hydromorphone HCl (Hydromorphone 1 Mg/Ml Inj 1 Ml) 0.5 mg IVP ONCE ONE Stop: 02/15/22 00:35 Last Admin: 02/15/22 00:43 Dose: 0.5 mg Documented by: Hydromorphone HCl (Hydromorphone 4 Mg Tablet) 2 mg PO Q4H PRN PRN Reason: SEVERE PAIN Hydromorphone HCl (Hydromorphone 1 Mg/Ml Inj 1 Ml) 0.5 mg IVP Q4H PRN PRN Reason: PAIN Last Admin: 02/15/22 02:33 Dose: 0.5 mg Documented by: Metoclopramide HCl (Metoclopramide 5 Mg/Ml Sdv 2 Ml) 10 mg IVP ONCE ONE Stop: 02/15/22 00:35 Last Admin: 02/15/22 00:40 Dose: 10 mg Documented by: Morphine Sulfate (Morphine 4 Mg/Ml Sdv 1 Ml) 4 mg IVP ONCE ONE Stop: 02/14/22 23:48 Last Admin: 02/15/22 00:13 Dose: 4 mg Documented by: Morphine Sulfate (Morphine 4 Mg/Ml Sdv 1 Ml) 2 mg IVP Q2H PRN PRN Reason: BREAKTHROUGH PAIN Last Admin: 02/15/22 10:00 Dose: 2 mg Documented by: Morphine Sulfate (Morphine 4 Mg/Ml Sdv 1 Ml) 4 mg IVP Q2H PRN PRN Reason: SEVERE PAIN Ondansetron HCl (Ondansetron 2 Mg/Ml Sdv 2 Ml) 4 mg IVP ONCE ONE Stop: 02/14/22 23:48 Last Admin: 02/15/22 00:14 Dose: 4 mg Documented by: Pantoprazole Sodium (Pantoprazole 40 Mg Sdv) 40 mg IVP ONCE ONE Stop: 02/15/22 01:13 Last Admin: 02/15/22 01:34 Dose: 40 mg Documented by: Allergies vancomycin Allergy (Verified 02/15/22 01:56) ALGY-Redness of Skin Clarifies it was red man syndrome Home Medications hydrocodone 5 mg-acetaminophen 325 mg tablet 1 tab PO Q8H PRN 3 Days #9 tab 02/14/22 [Rx Confirmed 02/15/22] ondansetron 4 mg disintegrating tablet 4 mg PO TID PRN 3 Days #10 tab 02/14/22 [Rx Confirmed 02/15/22] Discharge Plan Discharge Patient Disposition: Xfer Other Condition: Stable Prescriptions: No Action hydrocodone-acetaminophen 5-325 mg tablet 1 tab PO Q8H PRN (Reason: pain) 3 Days Qty: 9 0RF ondansetron 4 mg tablet,disintegrating 4 mg PO TID PRN (Reason: nausea and vomiting) 3 Days Qty: 10 0RF Transfer Attestations Time Spent in Transfer Care: greater than 30 min (We called 20 different hospitals to arrange this transfer we have spent almost 5 hours on this arrangement.) Quality Metrics Clinical Quality Measures [ No reported AMI, CVA or VTE this stay] Coding Level of Care Code Acute Group Burner Machine for Chg Fwd Diagnoses Nausea and vomiting R11.2 Uncontrolled pain R52 Liver mass R16.0 Lesion of both [place] post[place] kidneys N28.9 Microscopic hematuria R31.29
[2022-02-15] MEDS: HYDROmorphone 1 mg/mL INJ 1 mL 2 MG IVP (12:39)
[2022-02-15] MEDS: fentaNYL 50 mcg Patch 1 PATCH TRANSDERMA (12:39)
--- NOTE | 2022-02-15 14:17 | CTR_ITS ---
PROCEDURE INFORMATION: Exam: CTA Abdomen and Pelvis With Contrast, GI Bleeding Exam date and time: 02/15/2022 3:26 PM Age: 32 years old Clinical indication: Abdominal pain; Localized; Upper; Additional info: Liver adenoma TECHNIQUE: Imaging protocol: Computed tomographic angiography of the abdomen and pelvis with contrast. 3D rendering (Not supervised by radiologist): MIP and/or 3D reconstructed images were created by the technologist. Radiation optimization: All CT scans at this facility use at least one of these dose optimization techniques: automated exposure control; mA and/or kV adjustment per patient size (includes targeted exams where dose is matched to clinical indication); or iterative reconstruction. Contrast material: OMNI 350; Contrast volume: 95 ml; Contrast route: INTRAVENOUS (IV); COMPARISON: CT abdomen pelvis w con* [id number] 02/14/2022 5:47 PM RADIATION DOSE METRICS: Total DLP (mGy-cm): 3381.81 FINDINGS: Lungs: Mild elevation of the right hemidiaphragm. Compressive atelectasis in the right middle and right lower lobes. Pleural space: No pleural effusion. Heart: Stable mild enlargement of the visualized portions of the heart. Aorta: No evidence for aortic aneurysm or aortic dissection. Celiac trunk and mesenteric arteries: There is redemonstration of extravasation of contrast within the lesion on the arterial, portal venous, and delayed images consistent with active bleeding (series 7, images 74, 314, and 559). This suggests active bleeding from a branch of the right hepatic artery, it is uncertain whether there is also active bleeding from other vessels. The celiac artery, common hepatic artery and left hepatic artery, splenic artery, superior mesenteric artery, and inferior mesenteric artery are unremarkable. No occlusion, thrombosis, stenosis, dissection, or aneurysm. 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 Renal arteries are otherwise unremarkable. No occlusion, thrombosis, stenosis, extravasation, dissection, or aneurysm. Right iliac arteries: The right common iliac artery, right external iliac artery, and right internal iliac artery are unremarkable. No occlusion, thrombosis, stenosis, extravasation, dissection, or aneurysm. Left iliac arteries: The left common iliac artery, left external iliac artery, and left internal iliac artery are unremarkable. No occlusion, thrombosis, stenosis, extravasation, dissection, or aneurysm. Liver: There is heterogenous enhancement diffusely throughout the liver, this is likely due to multiple small lesions noted on the prior study, the small lesions are not as well visualized on the current study which may be secondary to enhancement. The large focus in the the right lobe of the liver is obscured by an area of hemorrhage. See under celiac trunk and mesenteric arteries for findings regarding contrast extravasation in this focus. Gallbladder and bile ducts: The gallbladder is unremarkable. No biliary ductal dilatation. Pancreas: The pancreas is unremarkable. No pancreatic ductal dilatation. Spleen: The spleen is unremarkable. Adrenal glands: The right and left adrenal glands are unremarkable. Kidneys and ureters: Subcentimeter hypodense foci in both right and left kidneys that are too small to characterize, however likely represent small cysts. The right and left ureters are unremarkable. Stomach and bowel: Unremarkable. No active gastrointestinal bleeding. No obstruction. No mucosal thickening. Appendix: No evidence of appendicitis. Intraperitoneal space: No free intraperitoneal air. No loculated fluid collections to suggest an abscess. Interval development of a moderate amount of hyperdense free fluid consistent with hemorrhage in the abdomen and pelvis. Lymph nodes: No lymphadenopathy. Urinary bladder: The bladder is unremarkable. Reproductive: Unremarkable as visualized. Bones/joints: No acute fracture. No dislocation. Soft tissues: No acute abnormality in the extra-abdominal soft tissues. CT/CT angio abdomen pelvis [id number] IMPRESSION: 1. Redemonstration of extravasation of contrast compared with the previous study within the inferior right lobe of the liver on the arterial, portal venous, and delayed images. This suggests active bleeding from a branch of the right hepatic artery, it is uncertain whether there is also active bleeding from other vessels. The area of hemorrhage has increased in size and is obscuring the large focus in the right hepatic lobe. Interval development of a moderate amount of hyperdense free fluid consistent with hemorrhage in the abdomen and pelvis. 2. There is heterogenous enhancement diffusely throughout the liver, this is likely due to multiple small foci noted on the prior study, the small foci are not as well visualized on the current study which may be due to enhancement. 3. 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
[2022-02-15 14:19] LABS: Hematocrit 39.6 % (42.0-52.0); Hemoglobin 13.2 g/dL (11.7-16.6)
--- NOTE | 2022-02-15 14:20 | PM.MISC ---
Miscellaneous Note Note: Since this morning I have tried sending to a different hospital, [facility] has no beds available at all, [facility] has put him on wait list [facility] has no beds for next 24 hours I have tried [facility], [facility] and [facility] Were able to get excepted at [facility] however patient's and sister are both reluctant to send him to [facility], they want me to try bigger centers and avoid [facility] and keep [facility] last resort, [facility] is only available until 3 PM, I am repeating his CT scan of his abdomen with angiogram, repeating H&H his hemoglobin is stable for now, hemodynamically stable Clinically I could tell that his right upper quadrant is getting tense and more swollen Right now my my fear is that this patient might go into hypovolemic shock, intraparenchymal hemorrhage and profuse uncontrollable bleeding Family is well aware I have had multiple meetings, care plan, charge nurse and patient's nurse were kept updated I will keep trying to find him a bed
[2022-02-15 15:27] LABS: Hematocrit 40.1 % (42.0-52.0)
[2022-02-15] MEDS: iohexol 350 mg/mL 100 mL Btl IV (15:39)
--- NOTE | 2022-02-15 16:26 | PM.MISC ---
Miscellaneous Note Note: I have tried few other hospitals but unsuccessful to get him a bed. I am asking [facility] to help me as well. Dr. Witt to me over the phone that he will need embolization first and then may be hepatic wedge resection. I am repeating his CTA abdomen pelvis with contrast, repeating H&H He has been hemodynamically stable. I will keep trying to find him a bed at a tertiary center.
--- NOTE | 2022-02-15 16:28 | P.MISC_ITS ---
Miscellaneous Note Note: This is 5:47 PM Multiple nurses, ER coordinator and myself have tried multiple hospitals in [facility] Unfortunately we have not been able to get him placed anywhere as of yet HG 13 down from 14 BP stable now I was able to speak with Vrad, radiologist Dr Ruby She is stating that it is hard to tell if it is bleed and hepatocellular adenoma versus vascular bleed but her suspicion is high for right hepatic artery bleeding with extravasation
--- NOTE | 2022-02-15 18:16 | PM.MISC ---
Miscellaneous Note Note: [facility] has asked me to fax CT abdomen pelvis on CTA reports to them at #[id number]
--- NOTE | 2022-02-15 18:46 | PC.NURSE ---
Patient is looking pale. His oxygen level drops to 88% when he is sleeping. Placed patient on 2 liters NC at this time. Patient is alert and orientated x4. Respirations are even and non-labored on the 2 liters. Family at bedside. Blood pressure is 139/76 98.4 temperature and 112 heart rate.
--- NOTE | 2022-02-15 18:50 | PC.NURSE ---
Dr. Moran updated on vital signs and patient condition. This nurse spoke to [facility] in [place] who said they have no beds. Spoke to [facility] in [place] they declined. Spoke to [facility] in [place] who is not accepting out of state transfers. Left a message for [facility] in [place] to return a call for possible transfer.
--- NOTE | 2022-02-15 20:02 | PC.NURSE ---
RN called [facility] in [place], [place] to give report. Spoke with Brian who stated he is not on the transfer list. Brian stated Dr. Calvillo does not know the transfer procedures and they might not have a bed available but will call this RN back.
--- NOTE | 2022-02-15 20:16 | PC.NURSE ---
i reported high pulse 117 and high temp 100.6 to nurse
[2022-02-15 20:17] LABS: Hematocrit 37.6 % (42.0-52.0); Hemoglobin 12.4 g/dL (11.7-16.6)
[2022-02-15 20:39] LABS: INR 1.21 (0.8-1.2)
[2022-02-15 20:41] LABS: Partial Thromboplastin Time 24.9 SECONDS (23.9-36.7)
[2022-02-15 20:42] LABS: Fibrinogen 266 mg/dL (174-498)
[2022-02-15 20:43] LABS: Platelet Count 344 10^3/cmm (130-400)
--- NOTE | 2022-02-15 20:56 | PC.NURSE ---
Report called to Eddi Rae RN at [facility] in [place], [place].
[2022-02-15] MEDS: naloxone 0.4 mg/ml SDV (21:35)
--- NOTE | 2022-02-15 21:44 | PC.NURSE ---
This RN entered room at 2109 to give family update. Pt noted to be resting with eyes closed and snoring respirations. Unresponsive to verbal stimuli or touch. Sternal rub performed. Pt opened eyes multiple times but unable to follow commands. Repeated sternal rub. Pt opened eyes and stated good morning . Able to follow commands. AAOx4. At 2134 when EMS arrived to tx pt unresponsive to sternal rub. Narcan 0.4 mg administered IV. Pt awoke. AAOx4 and following commands. Fentanyl patch removed from left shoulder. Disposed of per protocol. Dr. Smith made aware. Pt exiting unit at this time with EMS and family by side. Call placed to ANABELA Montague to update on pt status.
--- NOTE | 2022-02-15 22:11 | PC.NURSE ---
At 21:30 was called into the room by family to assess the patient. He had snoring respirations and would not wake to sternal rub. Family took off Fentanyl patch and gave to database report writer, was disposed of in the Drug Disposal bottle. Physician notified and ordered Narcan. RN gave Narcan at 21:35 and patient woke up and was A&O X4. VSS and proceeded to leave via EMS. Family was at the bedside the whole time.
== END 2022-02-15 21:45 | disposition other institution (70) ==
LOC: ER 02-15 01:17 → MEDSURG 02-15 01:50
PROVIDERS: Admitting Provider Internal Medicine; Emergency Provider Physician Assistant; Visit Provider Internal Medicine
DX: R11.2 Nausea with vomiting, unspecified (principal); R52 Pain, unspecified; R16.0 Hepatomegaly, not elsewhere classified; N28.9 Disorder of kidney and ureter, unspecified; R31.29 Other microscopic hematuria
CPT/HCPCS: 36415; 74174; 80053; 80074; 83690; 85014; 85018; 85025; 85049; 85384; 85610; 85730; 96365; 96375; 96376; 99285; C9113; G0378; J1170; J2270; J2310; J2405; J2550; J2765; J7030; Q9967